=== PATIENT | female | born 1980 | race Caucasian/White ===

== ENCOUNTER 2017-03-27 13:16 | Emergency (ER) | payer MEDICAID, OTHER ==
[~2017-03-27] VITALS: Ht 170.2 cm; Wt 68.0 kg
[~2017-03-27 13:16] MED LIST: ALPR1TAB2 PO; FLUO10CA26 PO
[2017-03-27 14:22] LABS: CREATININE 0.8 mg/dL (0.6-1.3); POTASSIUM 3.7 mmol/L (3.5-5.1)
[2017-03-27 14:27] LABS: BASOPHILS % (AUTO) 0.5 % (0.0-2.0); EOSINOPHILS % (AUTO) 0.4 % (0.0-7.0); HEMATOCRIT 37.7 % (31.2-41.9); HEMOGLOBIN 13.3 g/dL (10.9-14.3); LYMPHOCYTES # (AUTO) 1.9 K/uL (20.0-40.0); LYMPHOCYTES % (AUTO) 37.1 % (20.5-51.5); MEAN CORPUSCULAR HEMOGLOBIN 33.2 uug (24.7-32.8); MEAN CORPUSCULAR HGB CONC 35 g/dL (32.3-35.6); MEAN CORPUSCULAR VOLUME 94.4 fL (75.5-95.3); MONOCYTES # (AUTO) 0.3 K/uL (2.0-10.0); MONOCYTES % (AUTO) 5.5 % (0.0-11.0); NEUTROPHILS # (AUTO) 2.9 K/uL (1.8-8.9); NEUTROPHILS % (AUTO) 56.5 % (38.5-71.5); PLATELET COUNT (AUTO) 229 K/uL (179-408); WHITE BLOOD COUNT (AUTO) 5.1 K/uL (3.8-11.8)
[2017-03-27 14:28] LABS: BILIRUBIN,TOTAL 0.6 mg/dL (0.2-1.0); TOTAL PROTEIN, SERUM 7.5 g/dL (6.4-8.2)
--- NOTE | 2017-03-27 16:10 | NUR ---
Patient discharged to home in stable conditon. Written and verbal after care instructions given to patient. Patient verbalizes understanding of instructions.
[2017-03-27 16:12] LABS: *URINE HCG, QUAL NEGATIVE (NEGATIVE)
[2017-03-27 16:13] LABS: *BLOOD, URINE NEGATIVE (NEGATIVE); *COLOR,URINE DARK YELLOW (YELLOW); *KETONES,URINE 3+ (NEGATIVE); *PROTEIN,URINE 1+ (NEGATIVE); *UROBILINOGEN,URINE 0.2 E.U./dl (NORMAL); LEUKOCYTE ESTERASE ,URINE NEGATIVE (NEGATIVE); NITRITE, URINE NEGATIVE (NEGATIVE); PH,URINE 5.5 (5.0-8.0); UGLUCOSE NEGATIVE (NEGATIVE)
[2017-03-27 16:36] LABS: *BILIRUBIN,URIN NEGATIVE (NEGATIVE); *CLARITY,URINE CLOUDY (CLEAR)
[2017-03-27 16:37] LABS: BACTERIA,URINE MODERATE /HPF (NONE SEEN); MUCUS,URINE MANY /LPF (0-FEW); SQUAMOUS EPITHELIAL CELL,UR MANY /HPF (NONE SEEN); WBC,URINE 0-3 /HPF (0-3)
== END 2017-03-27 16:12 | disposition home or self-care (01) ==
LOC: MERGE 13:18 → ER 13:18
DX: F41.9 Anxiety disorder, unspecified (principal); G43.909 Migraine, unspecified, not intractable, without status migrainosus; Z87.891 Personal history of nicotine dependence; Z88.6 Allergy status to analgesic agent
CPT/HCPCS: 36415; 84703; 85025; A4663

== ENCOUNTER 2017-03-31 14:21 | Emergency (ER) | payer MEDICAID ==
[~2017-03-31] VITALS: Ht 170.2 cm; Wt 70.3 kg
[2017-03-31] MEDS ORDERED: CLON0.5T PO (15:00)
[2017-03-31 15:20] LABS: *BILIRUBIN,URIN NEGATIVE (NEGATIVE); *BLOOD, URINE NEGATIVE (NEGATIVE); *COLOR,URINE YELLOW (YELLOW); *KETONES,URINE NEGATIVE (NEGATIVE); *PROTEIN,URINE NEGATIVE (NEGATIVE); *UROBILINOGEN,URINE 0.2 E.U./dl (NORMAL); LEUKOCYTE ESTERASE ,URINE NEGATIVE (NEGATIVE); NITRITE, URINE NEGATIVE (NEGATIVE); PH,URINE 5.5 (5.0-8.0); UGLUCOSE NEGATIVE (NEGATIVE)
[2017-03-31 15:22] LABS: *CLARITY,URINE SLIGHTLY HAZY (CLEAR)
[2017-03-31 15:25] LABS: BACTERIA,URINE FEW /HPF (NONE SEEN); MUCUS,URINE FEW /LPF (0-FEW); SQUAMOUS EPITHELIAL CELL,UR MANY /HPF (NONE SEEN); WBC,URINE 0-3 /HPF (0-3)
[2017-03-31 15:29] LABS: *URINE HCG, QUAL NEGATIVE (NEGATIVE)
[2017-03-31] MEDS ORDERED: IV NORMAL SALINE 1000 ML BAG IV ONE (15:30)
[2017-03-31 15:33] LABS: BASOPHILS % (AUTO) 0.8 % (0.0-2.0); EOSINOPHILS # (AUTO) 0.1 K/uL (0.0-0.7); EOSINOPHILS % (AUTO) 1.5 % (0.0-7.0); HEMATOCRIT 38.2 % (37-47); HEMOGLOBIN 12.6 G/DL (12.0-16.0); LYMPHOCYTES # (AUTO) 2.4 K/UL (0.8-4.8); LYMPHOCYTES % (AUTO) 45.4 % (20.5-51.5); MEAN CORPUSCULAR HEMOGLOBIN 31.7 UUG (27.0-31.0); MEAN CORPUSCULAR HGB CONC 33 g/dL (32.0-37.0); MEAN CORPUSCULAR VOLUME 96.2 FL (81.0-99.0); MONOCYTES # (AUTO) 0.3 K/UL (0.1-1.30); MONOCYTES % (AUTO) 5.4 % (0.0-11.0); NEUTROPHILS # (AUTO) 2.4 K/UL (1.8-8.9); NEUTROPHILS % (AUTO) 46.9 % (38.5-71.5); PLATELET COUNT (AUTO) 271 K/UL (150-450); RED BLOOD CELL COUNT(AUTO) 3.97 MIL/UL (4.2-5.4); WHITE BLOOD COUNT (AUTO) 5.2 K/UL (4.0-11.2)
[2017-03-31 15:37] LABS: CREATININE 0.8 mg/dL (0.6-1.3); POTASSIUM 3.8 mmol/L (3.5-5.1)
[2017-03-31 15:42] LABS: BILIRUBIN,TOTAL 0.2 mg/dL (0.2-1.0); TOTAL PROTEIN, SERUM 7.1 g/dL (6.4-8.2)
[2017-03-31] MEDS ORDERED: MORPHINE SULFATE 4 MG/1 ML DISP.SYRIN IV ONE (15:45)
[2017-03-31] MEDS ORDERED: ONDANSETRON IV *ER 4 MG/2 ML VIAL IV ONE (15:45)
[2017-03-31] MEDS ORDERED: ONDANSETRON 4 MG/2 ML VIAL ONE (16:00)
[2017-03-31] MEDS ORDERED: MORPHINE SULFATE 4 MG/1 ML DISP.SYRIN ONE (16:00)
[2017-03-31] MEDS ORDERED: LORAZEPAM 2 MG/1 ML VIAL IV ONE (17:00)
[2017-03-31] MEDS ORDERED: LORAZEPAM 2 MG/1 ML VIAL ONE (17:06)
[2017-03-31] MEDS ORDERED: IV NS 1000 ML 1,000 ML IV ONE (17:15)
[2017-03-31] MEDS ORDERED: IOHEXOL 300MG/ML 100 ML INFUS..BTL ONE (17:28)
[2017-03-31] MEDS ORDERED: NORMAL SALINE FLUSH 10 ML DISP.SYRIN ONE (17:28)
[2017-03-31] MEDS ORDERED: IV NORMAL SALINE 250 ML IV ONE (17:28)
--- NOTE | 2017-03-31 17:52 | NUR ---
BRANDO LAMA TALKING TO DR. ORELLANA.
[2017-03-31] MEDS ORDERED: MORPHINE SULFATE 2 MG/1 ML DISP.SYRIN IV ONE (18:15)
[2017-03-31] MEDS ORDERED: MORPHINE SULFATE 2 MG/1 ML DISP.SYRIN ONE (18:24)
--- NOTE | 2017-03-31 18:40 | NUR ---
Patient discharged to home in stable conditon. Written and verbal after care instructions given. Patient verbalizes understanding of instructions.PT WALKS IN STEADY GAIT, PT DENEIS PAIN OR NAUSEA OR DIZZINESS AT THIS TIME. AT BEDSIDE.
[2017-03-31 18:41] VITALS: BP 121/77
[2017-04-02 09:07] LABS: *GC NAA Negative (Negative); *TRIC.VAG. NAA Negative (Negative)
== END 2017-03-31 18:48 | disposition home or self-care (01) ==
LOC: ER 14:24 → MERGE 14:24 → ER 18:48
DX: D25.9 Leiomyoma of uterus, unspecified (principal); N83.202 Unspecified ovarian cyst, left side; R10.2 Pelvic and perineal pain; G43.909 Migraine, unspecified, not intractable, without status migrainosus; Z88.6 Allergy status to analgesic agent; Z87.891 Personal history of nicotine dependence
CPT/HCPCS: 36415; 74022; 74177; 76856; 80053; 81001; 84703; 85025; 85610; 87210; 87491; 96361; 96374 ×2; 96375; 99285; A4663; J2060; J2270 ×2; J2405; J3490; J7030 ×2; J7050; Q9967

== ENCOUNTER 2017-04-13 13:55 | Emergency (ER) | payer MEDICAID ==
[~2017-04-13] VITALS: Ht 170.2 cm; Wt 68.0 kg
[~2017-04-13 13:55] MED LIST changes: +CLON0.5T PO
--- NOTE | 2017-04-13 14:22 | NUR ---
Received patient for discharge by MD- patient discharged to home in stable conditon. Written and verbal after care instructions given to patient. Patient verbalizes understanding of instructions.
== END 2017-04-13 14:25 | disposition home or self-care (01) ==
LOC: MERGE 13:55 → ER 13:55
DX: F41.9 Anxiety disorder, unspecified (principal); R51 Headache; Z88.6 Allergy status to analgesic agent
CPT/HCPCS: 99284; A4663

== ENCOUNTER 2017-04-18 16:41 | Emergency (ER) | payer MEDICAID ==
[~2017-04-18] VITALS: Ht 170.2 cm; Wt 62.1 kg
[2017-04-18 17:51] LABS: *BILIRUBIN,URIN NEGATIVE (NEGATIVE); *BLOOD, URINE Trace-lysed (NEGATIVE); *CLARITY,URINE CLEAR (CLEAR); *COLOR,URINE YELLOW (YELLOW); *KETONES,URINE NEGATIVE (NEGATIVE); *PROTEIN,URINE NEGATIVE (NEGATIVE); *UROBILINOGEN,URINE 0.2 E.U./dl (NORMAL); LEUKOCYTE ESTERASE ,URINE NEGATIVE (NEGATIVE); NITRITE, URINE NEGATIVE (NEGATIVE); UGLUCOSE NEGATIVE (NEGATIVE)
[2017-04-18 17:52] LABS: *URINE HCG, QUAL NEGATIVE (NEGATIVE)
[2017-04-18 17:57] LABS: BACTERIA,URINE MODERATE /HPF (NONE SEEN); RBC,URINE 0-3 /HPF (0-3); SQUAMOUS EPITHELIAL CELL,UR FEW /HPF (NONE SEEN)
--- NOTE | 2017-04-18 17:59 | NUR ---
U/S in progress at bedside.
--- NOTE | 2017-04-18 18:34 | NUR ---
Patient discharged to home in stable conditon. Written and verbal after care instructions given. Patient verbalizes understanding of instructions.
== END 2017-04-18 18:36 | disposition home or self-care (01) ==
LOC: ER 16:44 → MERGE 16:44 → ER 18:36
DX: K52.9 Noninfective gastroenteritis and colitis, unspecified (principal); R10.2 Pelvic and perineal pain; G43.909 Migraine, unspecified, not intractable, without status migrainosus; Z88.6 Allergy status to analgesic agent
CPT/HCPCS: 84703; A4663

== ENCOUNTER 2017-04-20 17:36 | Emergency (ER) | payer MEDICAID ==
[~2017-04-20] VITALS: Ht 165.1 cm; Wt 58.1 kg
--- NOTE | 2017-04-20 18:39 | NUR ---
Dr Streeter at the bedside for eval and exam.
--- NOTE | 2017-04-20 18:53 | NUR ---
Female customer experience analyst accompanied female patient for (u/s tech).
--- NOTE | 2017-04-20 20:50 | NUR ---
YONG performed MSE with female chaparone (SONDRA Lopez).
[2017-04-20 21:02] LABS: BASOPHILS % (AUTO) 0.6 % (0.0-2.0); CREATININE 0.7 mg/dL (0.6-1.3); EOSINOPHILS % (AUTO) 0.8 % (0.0-7.0); HEMATOCRIT 37.2 % (37-47); HEMOGLOBIN 12.8 G/DL (12.0-16.0); LYMPHOCYTES # (AUTO) 2.1 K/UL (0.8-4.8); LYMPHOCYTES % (AUTO) 42.3 % (20.5-51.5); MEAN CORPUSCULAR HEMOGLOBIN 32.4 UUG (27.0-31.0); MEAN CORPUSCULAR HGB CONC 34 g/dL (32.0-37.0); MEAN CORPUSCULAR VOLUME 94.1 FL (81.0-99.0); MONOCYTES # (AUTO) 0.3 K/UL (0.1-1.30); NEUTROPHILS # (AUTO) 2.5 K/UL (1.8-8.9); NEUTROPHILS % (AUTO) 49.3 % (38.5-71.5); PLATELET COUNT (AUTO) 292 K/UL (150-450); POTASSIUM 4.1 mmol/L (3.5-5.1); RED BLOOD CELL COUNT(AUTO) 3.96 MIL/UL (4.2-5.4); WHITE BLOOD COUNT (AUTO) 4.9 K/UL (4.0-11.2)
[2017-04-20 21:08] LABS: BILIRUBIN,DIRECT 0.2 mg/dL (0.0-0.2); BILIRUBIN,TOTAL 0.6 mg/dL (0.2-1.0); TOTAL PROTEIN, SERUM 7.6 g/dL (6.4-8.2)
--- NOTE | 2017-04-20 21:19 | NUR ---
Patient to radiology for CT via rbypro, serum test NEGATIVE.
[2017-04-20 21:23] LABS: *BILIRUBIN,URIN NEGATIVE (NEGATIVE); *BLOOD, URINE 3+ (NEGATIVE); *CLARITY,URINE SLIGHTLY CLOUDY (CLEAR); *COLOR,URINE YELLOW (YELLOW); *KETONES,URINE 1+ (NEGATIVE); *PROTEIN,URINE NEGATIVE (NEGATIVE); *UROBILINOGEN,URINE 0.2 E.U./dl (NORMAL); LEUKOCYTE ESTERASE ,URINE 2+ (NEGATIVE); NITRITE, URINE NEGATIVE (NEGATIVE); PH,URINE 6.5 (5.0-8.0); UGLUCOSE NEGATIVE (NEGATIVE)
--- NOTE | 2017-04-20 21:30 | NUR ---
Patient returned from CT, no acute distress noted.
[2017-04-20 21:37] LABS: BACTERIA,URINE MODERATE /HPF (NONE SEEN); SQUAMOUS EPITHELIAL CELL,UR MANY /HPF (NONE SEEN); WBC,URINE 20-50 /HPF (0-3)
--- NOTE | 2017-04-20 23:17 | NUR ---
Patient discharged to home in stable conditon. Written and verbal after care instructions given. Patient verbalizes understanding of instructions.
== END 2017-04-20 23:19 | disposition home or self-care (01) ==
LOC: ER 17:39
DX: N39.0 Urinary tract infection, site not specified (principal); D25.0 Submucous leiomyoma of uterus; L30.9 Dermatitis, unspecified; G43.909 Migraine, unspecified, not intractable, without status migrainosus; Z88.6 Allergy status to analgesic agent
CPT/HCPCS: 36415; 70486; 76856; 80048; 80076; 81001; 83690; 84703; 85025; 85730; 99285; A4663

== ENCOUNTER 2017-05-18 16:53 | Emergency (ER) | payer MEDICAID ==
[~2017-05-18] VITALS: Ht 165.1 cm; Wt 56.7 kg
--- NOTE | 2017-05-18 17:18 | NUR ---
Patient discharged to home in stable conditon. Written and verbal after care instructions given. Patient verbalizes understanding of instructions.
[2017-05-18 17:20] VITALS: BP 143/85
== END 2017-05-18 17:27 | disposition home or self-care (01) ==
LOC: ER 16:53
DX: F41.9 Anxiety disorder, unspecified (principal); F32.9 Major depressive disorder, single episode, unspecified; G43.909 Migraine, unspecified, not intractable, without status migrainosus; F19.10 Other psychoactive substance abuse, uncomplicated; Z87.891 Personal history of nicotine dependence; Z88.5 Allergy status to narcotic agent
CPT/HCPCS: A4663

== ENCOUNTER 2021-02-25 10:55 | Emergency (ER) | payer MEDICAID, OTHER ==
[~2021-02-25] VITALS: Ht 170.2 cm; Wt 88.5 kg
--- NOTE | 2021-02-25 11:15 | NUR ---
Pt is emotionally upset, states "my walked out on me last night". Pt states she usually takes Ativan for anxiety, states her pmd changed it to Xanax but she not taken any for three days. Pt placed on cont teletypesetter monitor, pulse ox and BP.
[2021-02-25] MEDS ORDERED: LORAZEPAM 0.5 MG TABLET PO ONE (12:00)
[2021-02-25 12:11] LABS: HEMATOCRIT 40.5 % (31.2-41.9); MEAN CORPUSCULAR HEMOGLOBIN 32.2 uug (24.7-32.8); MEAN CORPUSCULAR VOLUME 95.4 fL (75.5-95.3); PLATELET COUNT (AUTO) 312 K/uL (179-408)
[2021-02-25] MEDS ORDERED: ONDANSETRON 4 MG/2 ML VIAL IV ONE (12:15)
[2021-02-25] MEDS ORDERED: IV NORMAL SALINE 100 ML BAG IV ONE (12:15)
[2021-02-25] MEDS ORDERED: LORAZEPAM 1 MG TABLET ONE (12:16)
[2021-02-25] MEDS ORDERED: ONDANSETRON 4 MG/2 ML VIAL ONE (12:16)
[2021-02-25 12:20] LABS: CREATININE 0.8 mg/dL (0.6-1.3); POTASSIUM 5.2 mmol/L (3.5-5.1)
[2021-02-25 12:32] LABS: *BILIRUBIN,URIN NEGATIVE (NEGATIVE); *BLOOD, URINE 3+ (NEGATIVE); *CLARITY,URINE CLOUDY (CLEAR); *COLOR,URINE Brown (YELLOW); *KETONES,URINE NEGATIVE (NEGATIVE); *UROBILINOGEN,URINE 0.2 E.U./dl (NORMAL); LEUKOCYTE ESTERASE ,URINE 1+ (NEGATIVE); NITRITE, URINE NEGATIVE (NEGATIVE); PH,URINE 6.5 (5.0-8.0); UGLUCOSE NEGATIVE (NEGATIVE)
[2021-02-25 12:36] LABS: BILIRUBIN,TOTAL 0.3 mg/dL (0.2-1.0); TOTAL PROTEIN, SERUM 7.3 g/dL (6.4-8.2)
[2021-02-25 12:37] LABS: *AMPHETAMINE, URINE NEGATIVE (NEGATIVE); *CANNABINOID, URINE POSITIVE (NEGATIVE); *COCCAINE, URINE NEGATIVE (NEGATIVE); *OPIATE, URINE POSITIVE (NEGATIVE); *PHENCYCLIDINE SCREEN,URINE NEGATIVE (NEGATIVE)
[2021-02-25 13:02] LABS: THYROID STIMULATING HORMONE 0.473 mIU/mL (0.358-3.740)
[2021-02-25] MEDS ORDERED: CYCLOBENZAPRINE HCL 10 MG TABLET PO ONE (13:15)
[2021-02-25] MEDS ORDERED: CYCLOBENZAPRINE HCL 10 MG TABLET ONE (13:24)
[2021-02-25] MEDS ORDERED: LORA0.5T48 GT (14:01)
[2021-02-25 14:21] VITALS: BP 130/80
--- NOTE | 2021-02-25 14:21 | NUR ---
IV removed. Catheter intact and site benign. Pressure and 4x4 gauze applied to site. No bleeding noted.
--- NOTE | 2021-02-25 14:21 | NUR ---
Patient discharged to home in stable condition. Written and verbal after care instructions given. Patient verbalizes understanding of instructions. Stressed follow up or return to ER for worsening s/s.
[2021-02-25 15:19] LABS: BACTERIA,URINE FEW /HPF (NONE SEEN); RBC,URINE TNTC /HPF (0-3); SQUAMOUS EPITHELIAL CELL,UR MANY /HPF (NONE SEEN); URINE AMORPHOUS URATE MODERATE /HPF; WBC,URINE 20-50 /HPF (0-3)
== END 2021-02-25 14:22 | disposition home or self-care (01) ==
LOC: ER 10:56
DX: F41.9 Anxiety disorder, unspecified (principal); R11.10 Vomiting, unspecified; R00.0 Tachycardia, unspecified; Z88.6 Allergy status to analgesic agent; Z79.899 Other long term (current) drug therapy; F32.9 Major depressive disorder, single episode, unspecified
CPT/HCPCS: 36415; 80053; 80307; 81001; 84443; 84484; 85025; 87086; 93005; 96361; 96374; 99284; J2405; 70030-TC; A4663; J7030

== ENCOUNTER 2021-05-22 15:06 | Emergency (ER) | payer OTHER ==
[~2021-05-22] VITALS: Ht 170.2 cm; Wt 75.7 kg
[~2021-05-22 15:06] MED LIST changes: +LORA0.5T48 GT
[2021-05-22] MEDS ORDERED: LORA0.5T48 PO (15:55)
[2021-05-22] MEDS ORDERED: DIPH50CA37 PO (15:55)
[2021-05-22 15:59] VITALS: BP 132/78
[2021-05-22] MEDS ORDERED: LORAZEPAM 0.5 MG TABLET PO ONE (16:00)
[2021-05-22] MEDS ORDERED: LORAZEPAM 0.5 MG TABLET ONE (16:05)
== END 2021-05-22 15:59 | disposition home or self-care (01) ==
LOC: ER 15:06
DX: F41.9 Anxiety disorder, unspecified (principal); Z76.0 Encounter for issue of repeat prescription; R03.0 Elevated blood-pressure reading, without diagnosis of hypertension; F32.A Depression, unspecified; Z79.899 Other long term (current) drug therapy
CPT/HCPCS: A4663

== ENCOUNTER 2021-06-19 15:08 | Emergency (ER) | payer SELFPAY ==
[~2021-06-19 15:08] MED LIST changes: +DIPH50CA37 PO; +LORA0.5T48 PO; +TRAM50TA2 PO
--- NOTE | 2021-06-19 15:14 | NUR ---
Attempted to triage, pt was not found in ER waiting room or outside ER.
--- NOTE | 2021-06-19 16:20 | NUR ---
Pt was not found in ER waiting room or outside ER.
== END 2021-06-19 17:00 | disposition left against medical advice (07) ==
LOC: ER 15:11
DX: Z53.21 Procedure and treatment not carried out due to patient leaving prior to being seen by health care provider (principal)